=== PATIENT | male | born 1940 | race Hispanic/Latino ===

== ENCOUNTER 2023-04-08 07:40 | Emergency (ER) | payer MEDICARE ==
[~2023-04-08 07:40] MED LIST: INDOMETHACIN50 MG PO; LISINOPRIL20 MG PO; OMEPRAZOLE20 M1 PO; SIMVASTATIN40 MG OR; TRAMADOL HCL50 MG PO; ZITHROMAX250 MG PO; allo OR
== END 2023-04-08 08:00 | disposition left against medical advice (07) ==
LOC: CANPREER → LWOBS 07:40 → ED 07:40 → LWOBS 08:00
DX: Z53.21 Procedure and treatment not carried out due to patient leaving prior to being seen by health care provider (principal)

== ENCOUNTER 2023-05-26 17:39 | Emergency (ER) | payer MEDICARE ==
[~2023-05-26] VITALS: Ht 182.9 cm; Wt 99.0 kg
[2023-05-26 19:21] LABS: BASO% 0.5 % (0-3); EOS% 2.7 % (0-8); HEMOGLOBIN 11.2 g/dl (14.0-18.0); IMMATURE GRANULOCYTES 0.2 % (0.0-5.0); MEAN CORPUSCULAR HGB 32.9 pG CALC (26.0-32.0); MEAN CORPUSCULAR HGB CONC 32.9 g/dL CAL (32.0-36.0); MONO% 7.1 % (2-13); NEUT# 10.34 thou/uL (1.82-7.42); NEUT% 79.5 % (42-76); RED BLOOD COUNT 3.4 mill/uL (4.70-6.10); RED CELL DISTRI WIDTH 14.1 % (11.5-15.5)
[2023-05-26 19:28] LABS: ALBUMIN 4.6 g/dL (3.2-5.0); ALKALINE PHOSPHATASE 115 u/l (38-126); BILIRUBIN, TOTAL 0.5 mg/dL (0.2-1.3); BUN 24 mg/dL (8-23); BUN/CREATININE RATIO 14 (12-20 (CALC)); CARBON DIOXIDE 25 mmol/l (22-30); CHLORIDE 105 mmol/l (95-108); CREATININE 1.7 mg/dL (0.7-1.3); GFR FOR AFR.AMER. 47 ML/MIN (>=60 (CALC)); GFR OTHER RACES 39 ML/MIN (>=60 (CALC)); SGOT/AST 32 u/l (19-48); SODIUM 139 mmol/l (137-146); TOTAL PROTEIN 7.8 g/dL (6.3-8.2)
[2023-05-26 19:35] LABS: ANION GAP 13 (6-22 (CALC)); POTASSIUM 3.6 mmol/l (3.5-5.1)
[2023-05-26] MEDS ORDERED: ZOFRAN4 MG/TAB PO (21:39)
[2023-05-26] MEDS ORDERED: ZITHROMAX500 MG PO (21:39)
[2023-05-26] MEDS ORDERED: PREDNISONE20 MG PO (21:39)
[2023-05-26 23:04] VITALS: BP 115/58
[2023-05-26 23:51] VITALS: BP 115/58
== END 2023-05-26 23:53 | disposition home or self-care (01) ==
LOC: ED 17:39
PROVIDERS: Emergency Medicine
DX: J11.1 Influenza due to unidentified influenza virus with other respiratory manifestations (principal); I10 Essential (primary) hypertension; Z20.822 Contact with and (suspected) exposure to COVID-19